=== PATIENT | female | born 1965 | race Caucasian/White ===

== ENCOUNTER → 2018-03-17 14:00 | Outpatient (CLI) | payer OTHER, SELFPAY ==
[2018-03-17 14:54] LABS: Thyroid Stim Hormone (TSH) 1.25 uIU/mL (0.358-3.74)
[2018-03-22 13:16] LABS: HPV APTIMA, High Risk Negative (Negative)
== END ==
PROVIDERS: Family Provider Family Medicine; PCP Family Medicine; Referring Provider Nurse Practitioner Women's Health; Visit Provider Nurse Practitioner Women's Health
DX: R23.2 Flushing (principal); Z12.4 Encounter for screening for malignant neoplasm of cervix
CPT/HCPCS: 36415; 83001; 84443; 88175; G0145

== ENCOUNTER → 2018-04-17 10:14 | Outpatient (CLI) | payer OTHER, SELFPAY ==
--- NOTE | 2018-04-17 10:16 | BI_ITS ---
MAMMOGRAPHY - BILATERAL SCREENING REASON FOR EXAM: Female, 52 years old. Routine annual screening examination. PERTINENT HISTORY: Non-contributory. TECHNIQUE: Digital bilateral breast edwar (3D mammographic acquisition) in the CC and MLO projections. 2-D mediolateral oblique (MLO) and craniocaudad (CC) views of both breasts were obtained. CAD: Full Field Digital Mammography with Computer Added Detection was performed. COMPARISON: None. Baseline examination. FINDINGS: Breast Composition: The breasts are heterogeneously dense, which may obscure small masses. There are no dominant masses or suspicious calcifications. No other significant abnormalities are identified. There has been no significant change since the prior study. BI/SCREENING MAMM (CAD), BILAT IMPRESSION: Stable bilateral screening mammogram. Yearly follow-up mammogram recommended. (A) ASSESSMENT CATEGORY: BIRADS Category 1: Negative. A letter regarding these results will be sent to the patient by the facility within 30 days. Approximately 10% of breast cancers are not detected by mammography. A normal mammogram should not delay biopsy of a clinically suspicious abnormality. [id number] Electronically Signed: Ganesh Grigsby MD at 15:28 EST Tel [phone], Service support ,
== END ==
PROVIDERS: Family Provider Family Medicine; PCP Family Medicine; Referring Provider Nurse Practitioner Women's Health; Visit Provider Nurse Practitioner Women's Health
DX: Z12.31 Encounter for screening mammogram for malignant neoplasm of breast (principal)
CPT/HCPCS: 77063; 77067

== ENCOUNTER → 2019-02-12 | Outpatient (CLI) | payer OTHER, SELFPAY ==
[2018-05-24 14:47] VITALS: BMI 33.0
[2019-02-12 12:00] LABS: Follicle Stimulating Hormone 56.9 mIU/mL
== END | disposition home or self-care (01) ==
LOC: LAB 10:31
PROVIDERS: Family Provider Family Medicine; PCP Family Medicine; Referring Provider Nurse Practitioner Women's Health; Visit Provider Nurse Practitioner Women's Health
DX: N92.6 Irregular menstruation, unspecified (principal)
CPT/HCPCS: 36415; 83001

== ENCOUNTER → 2019-05-13 09:45 | Outpatient (CLI) | payer OTHER, SELFPAY ==
[2018-05-24 14:47] VITALS: BMI 33.0
[2019-03-22 09:53] VITALS: BMI 33.0
--- NOTE | 2019-05-13 09:55 | BI_ITS ---
MAMMOGRAPHY - BILATERAL SCREENING 3-D TOMOSYNTHESIS REASON FOR EXAM: Female, 53 years old. PERTINENT HISTORY: No significant family history. TECHNIQUE: 2-D mammograms and 3-D Tomosynthesis of the breast (s) were performed. CAD was performed. COMPARISON: April 17, 2018 FINDINGS: The breast composition is heterogeneous density of both breasts There is an added density involving the upper outer quadrant of the right the breast this measures 1.5 cm not seen in the previous study for ultrasound assessment. Otherwise stellate lesion, microcalcifications, skin thickening or nipple retraction seen. There are partially seen benign looking lymph nodes in the left axilla. IMPRESSION: Newly seen 1.5 cm density upper outer quadrant right breast for ultrasound assessment. BIRADS -0 Electronically Signed: Jena Gomez, at 14:13 EST Tel , Service support , BI/SCREEN MAMM (CAD) W/MALISSA BILAT
== END ==
PROVIDERS: Family Provider Family Medicine; PCP Family Medicine; Referring Provider Nurse Practitioner Women's Health; Visit Provider Nurse Practitioner Women's Health
DX: Z12.31 Encounter for screening mammogram for malignant neoplasm of breast (principal)
CPT/HCPCS: 77063; 77067

== ENCOUNTER → 2019-05-20 14:12 | Outpatient (CLI) | payer OTHER, SELFPAY ==
[2019-03-22 09:53] VITALS: BMI 33.0
--- NOTE | 2019-05-20 14:19 | US_ITS ---
STUDY: ULTRASOUND BREAST - RIGHT REASON FOR EXAM: Female, 53 years old. Abnormal screening mammogram. TECHNIQUE: Axial and longitudinal images of the RIGHT breast were performed with a high resolution ultrasound transducer. # OF IMAGES: 8 COMPARISON: Comparison is made with prior mammogram dated May 13, 2019. FINDINGS: RIGHT Breast: The mammographic abnormality corresponds to a 12 mm x 9 mm x 8 mm cyst at the 10:00 position of the breast at 10 cm from nipple. US/Breast Limited Unilateral IMPRESSION: The mammographic abnormality corresponds to a 9 mm x 12 mm x 8 mm cyst at the 10:00 position of the breast at 10 cm from the nipple. ASSESSMENT CATEGORY: BIRADS Category 2: Benign. A letter regarding these results will be sent to the patient by the facility within 30 days. Electronically Signed: Ganesh Grigsby, at 9:54 EST , Service support ,
== END ==
PROVIDERS: Family Provider Family Medicine; PCP Family Medicine; Referring Provider Nurse Practitioner Women's Health; Visit Provider Nurse Practitioner Women's Health
DX: R92.8 Other abnormal and inconclusive findings on diagnostic imaging of breast (principal)
CPT/HCPCS: 76642

== ENCOUNTER → 2020-04-02 08:47 | Outpatient (CLI) | payer OTHER, SELFPAY ==
[2020-04-02 08:20] VITALS: BMI 33.2
[2020-04-02 09:12] LABS: Absolute Lymphocyte Count 1.11 X10^3/uL (0.83-4.51); Absolute Neutrophil Count 2.4 X10^3/uL (2.0-7.7); Basophil# 0.03 X10^3/uL; Basophil% 0.8 % (0-1); Eosinophil# 0.06 X10^3/uL; Eosinophils% 1.5 % (0-5); Hematocrit 45.9 % (37-47); Hemoglobin 14.2 g/dL (12.0-15.0); Lymphocyte # 1.11 X10^3/ul (4.0); Lymphocyte % 28.5 % (19-41); Mean Corp Hgb Conc 30.9 g/dL (32-36); Mean Corpuscular Hgb 30.4 pg (27.0-32.0); Mean Corpuscular Volume 98.3 fL (81-99); Mean Platelet Vol. 10.7 fl (6.2-12.0); Monocyte# 0.33 X10^3/uL; Monocyte% 8.5 % (0-10); NRBC Flagged by Analyzer 0 % (0-5); Neutrophil # 2.35 X10^3/uL (2.7-7.7); Neutrophil % 60.4 % (47-70); Platelet Count 280 K/mm3 (150-450); RBC Distribution Width CV 12.6 % (11.6-14.6); RBC Distribution Width SD 45.6 fl (35.1-43.9); Red Blood Count 4.67 M/mm3 (4.2-5.4); White Blood Count 3.9 K/mm3 (4.4-11.0)
[2020-04-02 09:34] LABS: Thyroid Stim Hormone (TSH) 1.69 uIU/mL (0.358-3.74)
[2020-04-02 10:59] LABS: Vitamin D,25 Hydroxy 34.6 ng/mL
== END ==
PROVIDERS: PCP Family Medicine; Referring Provider Nurse Practitioner Women's Health; Visit Provider Nurse Practitioner Women's Health
DX: R53.83 Other fatigue (principal); Z13.29 Encounter for screening for other suspected endocrine disorder; Z13.21 Encounter for screening for nutritional disorder
CPT/HCPCS: 36415; 82306; 84443; 85025

== ENCOUNTER → 2020-05-14 10:51 | Outpatient (CLI) | payer OTHER, SELFPAY ==
[2019-03-22 09:53] VITALS: BMI 33.0
[2020-04-02 08:20] VITALS: BMI 33.2
--- NOTE | 2020-05-14 10:52 | BI_ITS ---
MAMMOGRAPHY - BILATERAL SCREENING REASON FOR EXAM: Female, 54 years old. Routine annual screening examination. PERTINENT HISTORY: Non-contributory. TECHNIQUE: Digital bilateral breast malissa (3D mammographic acquisition) in the CC and MLO projections. 2-D mediolateral oblique (MLO) and craniocaudad (CC) views of both breasts were obtained. CAD: Full Field Digital Mammography with Computer Added Detection was performed. COMPARISON: Comparison is made with prior examination dated 05/13/2019 and 04/17/2018. FINDINGS: Breast Composition: The breasts are heterogeneously dense, which may obscure small masses. The previously seen nodule in the upper outer quadrant of the right breast is increased in size. It presently measures 1.9 cm x 1.9 cm. This was demonstrated to be a cyst on prior ultrasound. No other significant abnormalities are identified. BI/SCREEN MAMM (CAD) W/MALISSA BILAT IMPRESSION: Mild increase in size of the previously seen nodule in the deep upper lateral aspect of the right breast as described. This was demonstrated to be a cyst on prior sonogram. Yearly follow-up mammogram recommended. (A) ASSESSMENT CATEGORY: BIRADS Category 2: Benign. A letter regarding these results will be sent to the patient by the facility within 30 days. Approximately 10% of breast cancers are not detected by mammography. A normal mammogram should not delay biopsy of a clinically suspicious abnormality. [id number] Electronically Signed: Ganesh Grigsby, at 12:03 EST , Service support ,
== END ==
PROVIDERS: PCP Family Medicine; Referring Provider Nurse Practitioner Women's Health; Visit Provider Nurse Practitioner Women's Health
DX: Z12.31 Encounter for screening mammogram for malignant neoplasm of breast (principal)
CPT/HCPCS: 77063; 77067

== ENCOUNTER → 2021-05-17 14:58 | Outpatient (CLI) | payer OTHER, SELFPAY ==
--- NOTE | 2021-05-17 15:32 | BI_ITS ---
MAMMOGRAPHY - BILATERAL SCREENING REASON FOR EXAM: Female, 55 years old. Routine annual screening examination. PERTINENT HISTORY: Non-contributory. TECHNIQUE: Digital bilateral breast malissa (3D mammographic acquisition) in the CC and MLO projections. 2-D mediolateral oblique (MLO) and craniocaudad (CC) views of both breasts were obtained. CAD: Full Field Digital Mammography with Computer Added Detection was performed. COMPARISON: Comparison is made with prior study dated 05/14/2020 and 05/13/2019. FINDINGS: Breast Composition: The breasts are heterogeneously dense, which may obscure small masses. Once again, a well-defined nodule is seen in the deep upper lateral aspect of the right breast. It presently measures 2.4 cm x 2.8 cm. This has increased in size as compared to prior study. This was demonstrated to be a cyst on prior sonogram. No other significant abnormalities are identified. BI/SCRN MAMM (CAD)W/MALISSA BILAT IMPRESSION: Since prior study, there has been an increase in size of the nodular density in the deep upper lateral aspect of the right breast. This was demonstrated to be a cyst on prior sonogram. Yearly follow-up mammogram recommended. (A) ASSESSMENT CATEGORY: BIRADS Category 2: Benign. A letter regarding these results will be sent to the patient by the facility within 30 days. Approximately 10% of breast cancers are not detected by mammography. A normal mammogram should not delay biopsy of a clinically suspicious abnormality. [id number] Electronically Signed: Ganesh Grigsby MD at 8:47 EST , Service support ,
== END ==
PROVIDERS: PCP Family Medicine; Referring Provider Nurse Practitioner Women's Health; Visit Provider Nurse Practitioner Women's Health
DX: Z12.31 Encounter for screening mammogram for malignant neoplasm of breast (principal)
CPT/HCPCS: 77063; 77067

== ENCOUNTER → 2021-05-23 07:45 | Outpatient (CLI) | payer OTHER, SELFPAY ==
--- NOTE | 2021-05-23 07:48 | US_ITS ---
STUDY: ULTRASOUND BREAST - RIGHT REASON FOR EXAM: Female, 55 years old. History of right breast cyst. TECHNIQUE: Axial and longitudinal images of the RIGHT breast were performed with a high resolution ultrasound transducer. # OF IMAGES: 22 COMPARISON: Comparison is made with prior mammogram dated 05/17/2021 and prior ultrasound of the right breast dated 05/20/2019 FINDINGS: RIGHT Breast: There is a 2.1 cm x 2.5 cm x 1.5 cm cyst at the 10 o''clock position of the breast at 1 cm from the nipple. US/Breast Limited Unilateral IMPRESSION: 2.1 cm x 2.5 cm x 1.5 cm cyst at the 10 o''clock position of the breast of 1 cm from the nipple. ASSESSMENT CATEGORY: BIRADS Category 2: Benign. A letter regarding these results will be sent to the patient by the facility within 30 days. Electronically Signed: Ganesh Grigsby MD at 8:47 EST , Service support ,
== END ==
PROVIDERS: PCP Family Medicine; Referring Provider Nurse Practitioner Women's Health; Visit Provider Nurse Practitioner Women's Health
DX: N60.01 Solitary cyst of right breast (principal)
CPT/HCPCS: 76642

== ENCOUNTER 2022-05-06 08:52 | Outpatient (CLI) | payer OTHER, SELFPAY ==
--- NOTE | 2022-05-06 08:55 | US_ITS ---
STUDY: ULTRASOUND BREAST - RIGHT REASON FOR EXAM: Female, 56 years old. Right breast mass. History of right breast cyst. TECHNIQUE: Axial and longitudinal images of the RIGHT breast were performed with a high resolution ultrasound transducer. # OF IMAGES: 6 COMPARISON: May 23, 2021. FINDINGS: RIGHT Breast: Simple cyst at the 10:00 position of the right breast 10 cm from the nipple measuring 2.2 cm x 2.6 cm. Cyst has slightly increased in size since the comparison ultrasound. No suspicious lesions. Since the cyst has increased in size slightly, if the patient develops increasing pain, ultrasound-guided cyst aspiration could be performed in an attempt to relieve the pain. US/Breast Limited Unilateral IMPRESSION: Slight increase in right breast cyst. See discussion above regarding ultrasound-guided cyst aspiration. Follow-up yearly screening mammogram recommended. ASSESSMENT CATEGORY: BIRADS Category 2: Benign. A letter regarding these results will be sent to the patient by the facility within 30 days. Electronically Signed: Danny Hogue, at 10:46 EST ,
--- NOTE | 2022-05-06 09:23 | BI_ITS ---
DIGITAL MAMMOGRAPHY - BILATERAL SCREENING TOMOSYNTHESIS REASON FOR EXAM: Female, 56 years old. Palpable right breast mass. PERTINENT HISTORY: History of right breast cyst TECHNIQUE: Digital bilateral breast tomosynthesis (3-D mammographic acquisition) in the CC and MLO projections. Synthesized 2-D images (C-View reconstruction from tomosynthesis acquisition) providing bilateral breast CC and MLO views. CAD: Computer Aided Detection was performed on this study. COMPARISON: May 17, 2021, May 14, 2020. FINDINGS: Breast Composition: There are scattered areas of fibroglandular density. Circumscribed lobulated mass at the 10:00 position of the right breast which is slightly larger. Ultrasound of the right breast showed slight increase in size of the simple cyst. The patient was informed that if the cyst became more painful, ultrasound-guided cyst aspiration could be performed for potential pain relief. No other abnormality in either breast. BI/DIAG MAMM W/CAD, BILAT IMPRESSION: Slight increase in size of right breast cyst as described See discussion above regarding ultrasound-guided cyst aspiration. ASSESSMENT CATEGORY: BIRADS Category 2: Benign. FOLLOW UP RECOMMENDATION: Follow up recommended within 12 months. STATISTICAL INFORMATION FOR PATIENTS AND PHYSICIANS: A. A negative report should not delay biopsy if a dominant mass or clinically suspicious mass is present. 5-8% of breast cancers are not identified by mammography. B. Comparison with prior films increases the sensitivity of mammography for detection of early malignancy. Screening mammography is done annually to evaluate subtle changes of the breasts that otherwise may not be apparent without comparison to previous examinations. While attempts to retrieve prior examinations will be made on your behalf when thought to be necessary in the workup of a suspicious finding, it is the patient''s responsibility to provide the examining facility with any prior examinations. All patients aged 40 years and older undergoing screening mammography are entered into a reminder system with a target date for the next mammogram. Electronically Signed: Danny Hogue, at 10:48 EST ,
== END 2022-05-06 23:59 | disposition home or self-care (01) ==
LOC: OPBI 08:53
PROVIDERS: PCP Family Medicine; Visit Provider Surgery
DX: N60.01 Solitary cyst of right breast (principal); R92.2 Inconclusive mammogram
CPT/HCPCS: 76642; 77062; 77066; G0279

== ENCOUNTER → 2022-07-07 | Outpatient (CLI) | payer OTHER, SELFPAY ==
[2022-07-11 16:14] LABS: HPV APTIMA, High Risk Negative (Negative)
== END | disposition home or self-care (01) ==
LOC: LABSPEC 16:09
PROVIDERS: PCP Family Medicine; Referring Provider Nurse Practitioner Women's Health; Visit Provider Nurse Practitioner Women's Health
DX: Z12.4 Encounter for screening for malignant neoplasm of cervix (principal)
CPT/HCPCS: 87624; 88175; G0145

== ENCOUNTER → 2023-07-09 | Outpatient (CLI) | payer OTHER, SELFPAY ==
--- NOTE | 2023-07-09 10:43 | BI_ITS ---
MAMMOGRAPHY - BILATERAL SCREENING REASON FOR EXAM: Female, 57 years old. Routine annual screening examination. PERTINENT HISTORY: Non-contributory. TECHNIQUE: Digital bilateral breast malissa (3D mammographic acquisition) in the CC and MLO projections. 2-D mediolateral oblique (MLO) and craniocaudad (CC) views of both breasts were obtained. CAD: Full Field Digital Mammography with Computer Added Detection was performed. COMPARISON: Comparison is made with prior study dated May 17, 2021 and May 06, 2022. FINDINGS: Breast Composition: There are scattered areas of fibroglandular density. The previously seen 2.4 cm well-defined nodule in the upper lateral aspect of the right breast is not present at this time and most likely represents prior drainage of a cyst. No other significant abnormalities are identified. BI/SCRN MAMM (CAD)W/MALISSA BILAT IMPRESSION: The previously seen nodular density in the upper-outer quadrant of the right breast is not seen at this time in keeping with history of prior cystic drainage. Yearly follow-up mammogram recommended. (A) ASSESSMENT CATEGORY: BIRADS Category 2: Benign. A letter regarding these results will be sent to the patient by the facility within 30 days. Approximately 10% of breast cancers are not detected by mammography. A normal mammogram should not delay biopsy of a clinically suspicious abnormality. [id number] Electronically Signed: Ganesh Grigsby MD at 13:21 EST ,
--- OUTSIDE RECORDS SUMMARY | 2023-07-09 11:18 | XMS RPT_ITS | CCD ---
Author Name Unknown Address [address] [place] [address] Organization [facility] Care Team Providers Care Pcat Instructor Name Role Phone PCP, NONE Unavailable Unavailable REGINE BORGES Unavailable Unavailable Rigoberto Hernandez Unavailable Unavailabl e Furntricia, Luc Unavailable Unavailable Pending Provider Unavailable Unavailable Update Needed Unavailable Unavailable Pending Provider Unavailable Unavailable Unavailable Unavailable Furntricia, Luc T Unavailable Cl MAGALLON, Pepe Javier Primary Care Provider Luc Oliva MD Primary Care Provider [phone] Luc Oliva MD Unavailable [phone] LUC OLIVA Primary Care Unavailable Cl MAGALLON, Pepe Javier Primary Care Provider LUC OLIVA Attending Unavailable LUC OLIVA Primary Care Unavailable LUC OLIVA Attending Unavailable LUC OLIVA Primary Care Unavailable Luc Oliva MD Primary Care Provid er Dr. Luc Oliva Primary Care Un available Tessa, Ms. Nancy Ross Attending Unavail able NANCY ZARATE Referring Unavailable NANCY ZARATE Attending Unavailable LUC OLIVA Primary Care Elvin labLUC Robertson Primary Care UnavaLOLIS Gifford Attending Unavailable NANCY ZARATE Admitting Unavailable NANCY ZARATE Referring Unavailable LUC OLIVA Primary Care Unavai labNANCY Herbert Referring Unavailable GEORGE LAGUERRE Attending Unavailable NANCY ZARATE Admitting Unavailable LUC OLIVA Primary Care Unavai labtheo GALINDO, LOLIS Attending Unavailable ZARATENANCY Referring Unavailable ZARATE, NANCY ROSS Admitting Unavailable [facility], [facility] Primary Care Unavai lable HERNÁNDEZ, VIKTOR Attending Unavailable ZARATE, NANCY ROSS Referring Unavailable ZARATE, NANCY ROSS Admitting Unavailable F[facility], [facility] Care Unacelena lable HERNÁNDEZ, VIKTOR Attending Unavailable ZARATE, NANCY ROSS Admitting Unavailable ZARATE, NANCY ROSS Referring Unavailable SOWMYA, ARNOLD TERNA Admitting Unavailab le FURNESS, [facility] Care Unacelena labtheo OLSEN, ARNOLD TERAN Attending Unavailab le FURNESS, [facility] Care Unavai lable HERNÁNDEZ, VIKTOR Attending Unavailable ZARATE, NANCY ROSS Admitting Unavailable ZARATE, NANCY ROSS Referring Unavailable FURNESS, [facility] Care Unaastridi lable ZARATE, NANCY ROSS Admitting Unavailable ZARATE, NANCY ROSS Referring Unavailable WARNES, MARYSE Attending Unavailable CONY LOFTON Attending Unavailable FURNESS, [facility] Primary Care UnaCONY Yepez Attending Unavailable FURNESS, [facility] Primary Care CONY Lawrence Attending Unavailable FURNESS, [facility] Primary Care Unaastridi labtheo OLSEN, ARNOLD TERAN Attending Unavailab le FURNESS, [facility] Primary Care Unavai lable ZARATENANCY Attending Unavailable FURNESS, [facility] Primary Care Unavai lable FURNESS, [facility] Referring Unavai lable FURNESS, LUC SUE Admitting Unavai lable ZARATENANCY Admitting Unavailable ZARATE, NANCY ROSS Referring Unavailable FURNESS, [facility] Primary Care Unavai lable NANCY ZARATE Attending Unavailable [facility], [facility] Primary Care Unavai lable FURNESS, [facility] Primary Care Unaastridi labARNOLD Hannah Attending Unavailab le MARY PIKE Attending Unavailabl e PEPE DESAI [facility] Unavaila ble MARY PIKE Referring PEPE Mendez Primary Care MARY Zimmer Referring MARY Reyes Attending Felecia schwarz Allergies Allergy Classification Reported Allergen(s) Allergy Type Date of Onset Reaction(s) Facility (3 sources) Seasonal allergy; Translations: [SEASONAL ALLERGIES] Allergy to substance 2 Other: See Comments [facility] Work Phone: Medications Current Medications Medication Drug Class(es) Dates Sig (Normalized) Sig (Original) aspirin 81 mg delayed release oral tablet (7 sources) Platelet Aggregation Inhibitor, Nonsteroidal Anti-inflammatory Drug Start: 03-06-2023 End: 04-05-2023 take 1 tablet by mouth twice daily aspirin 81 MG EC tablet Take 1 (one) tablet (81 mg total) by mouth 2 (two) times a day . 60 tablet 0 03/06/2023 04/05/2023 Active Completed/Discontinued Medications Medication Drug Class(es) Dates Sig (Normalized) Sig (Original) amoxicillin 875 mg / clavulanate 125 mg oral tablet (6 sources) Penicillin-class Antibacterial Start: 05-20-2021 take 1 tablet by mouth once daily Amoxicillin-Pot Clavulanate 875-125 MG Oral Tablet TAKE 1 TABLET EVERY 12 HOURS DAILY. Quantity: 20 Refills: 1 Ordered: 20-May-2021 Luc Oliva MD Start : 20-May-2021 Active Problems Active Problems Problem Classification Problem Date Documented Date Episodic/Chronic Disorders of teeth and jaw (9 sources) Temporomandibular joint disorder; Translations: [Temporomandibular joint disorders, unspecified] Onset: 09-17-2022 09-17-2022 Episodic Headache; including migraine (20 sources) Migraine without aura, not refractory ; Translations: [Migraine] Onset: 09-17-2022 09-17-2022 Chronic Immunizations and screening for infectious disease (15 sources) Patient encounter status; Translations: [Other specified vaccination] 09-18-2022 Episodic Inflammation; infection of eye (except that caused by tuberculosis or sexually transmitteddisease) (4 sources) Bilateral punctate keratitis of eyes; Translations: [Punctate keratitis, bilateral] Onset: 07-23-2020 Chronic Joint disorders and dislocations; trauma-related (8 sources) Other meniscus derangements, posterior horn of medial meniscus, left knee; Translations: [Old bucket handle tear of medial meniscus] Onset: 12-26-2022 01-26-2023 Chronic Joint disorders and dislocations; trauma-related (18 sources) Tear of medial meniscus of knee; Translations: [Other tear of medial meniscus, current injury, left knee, subsequent encounter] Onset: 01-07-2023 01-07-2023 Episodic Malaise and fatigue (5 sources) Fatigue; Translations: [Other fatigue] Onset: 09-18-2022 09-18-2022 Episodic Osteoarthritis (20 sources) Unilateral primary osteoarthritis, left knee; Translations: [Osteoarthritis of left knee joint] Onset: 11-05-2022 Chronic Other connective tissue disease (1 source) Synovial cyst of popliteal space [Luque], left knee; Translations: [Synovial cyst of popliteal space [Luque], left knee] Onset: 12-26-2022 Episodic Other eye disorders (1 source) Bilateral vitreous floaters; Translations: [Other vitreous opacities, bilateral] Chronic Other eye disorders (4 sources) Tear film insufficiency; Translations: [Dry eye syndrome of bilateral lacrimal glands] Onset: 07-23-2020 Episodic Other eye disorders (3 sources) Epithelial basement membrane dystrophy; Translations: [ABMD (anterior basement membrane dystrophy)] Onset: 07-23-2020 07-23-2020 Episodic Other non-traumatic joint disorders (1 source) Effusion, left knee; Translations: [Effusion, left knee] Onset: 12-26-2022 Episodic Other screening for suspected conditions (not mental disorders or infectious disease) (4 sources) Encounter for screening for lipoid disorders; Translations: [Encounter for screening for lipoid disorders] Onset: 09-18-2022 Episodic Other upper respiratory disease (9 sources) Allergic rhinitis; Translations: [Allergic rhinitis, cause unspecified] Onset: 09-17-2022 09-17-2022 Chronic Residual codes; unclassified (1 source) Past history of procedure; Translations: [Other specified personal history presenting hazards to health] Onset: 05-06-2022 Episodic Residual codes; unclassified (1 source) History of arthroscopy of knee joint; Translations: [Other specified postprocedural states] 03-20-2023 Episodic Residual codes; unclassified (4 sources) Other specified postprocedural states; Translations: [Other specified postprocedural states] Onset: 03-06-2023 Episodic Spondylosis; intervertebral disc disorders; other back problems (4 sources) Thoracic back pain; Translations: [Dorsalgia, unspecified] Onset: 09-18-2022 09-18-2022 Episodic Unclassified (2 sources) Results Onset: 01-01-2023 Past or Other Problems Problem Classification Problem Date Documented Date Episodic/Chronic Conditions associated with dizziness or vertigo (18 sources) Vertigo; Translations: [Dizziness and giddiness] Onset: 09-17-2022 09-17-2022 Episodic Inflammation; infection of eye (except that caused by tuberculosis or sexually transmitteddisease) (2 sources) Allergic conjunctivitis of bilateral eyes; Translations: [Acute atopic conjunctivitis, bilateral] Onset: 11-05-2020 11-05-2020 Episodic Open wounds of extremities (9 sources) Puncture wound without foreign body of right thumb without damage to nail, initial encounter; Translations: [Puncture wound of thumb of right hand] Onset: 09-17-2022 Resolved: 09-17-2022 09-17-2022 Episodic Other eye disorders (3 sources) 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; Translations: [Recurrent erosion of cornea, left eye] Onset: 07-23-2020 Episodic Other non-traumatic joint disorders (8 sources) Pain in left knee; Translations: [Pain in joint, lower leg] Onset: 11-05-2022 Episodic Other upper respiratory infections (5 sources) Acute maxillary sinusitis; Translations: [Acute maxillary sinusitis] Onset: 09-17-2022 Resolved: 09-17-2022 09-17-2022 Episodic Residual codes; unclassified (2 sources) Pain, unspecified; Translations: [Pain, unspecified] Onset: 11-27-2022 Episodic Sprains and strains (3 sources) Strain of thoracic region; Translations: [Sprain of thoracic] Onset: 09-17-2022 Resolved: 09-17-2022 09-17-2022 Episodic Unclassified (1 source) Frequency of micturition / R35.0(ICD-10) Onset: 03-31-2017 Unclassified (1 source) Frequency of micturition; Translations: [Frequency of micturition] Onset: 03-31-2017 Unclassified (1 source) Patient encounter status; Translations: [Encounter for immunization] Urinary tract infections (1 source) Urinary tract infections Onset: 03-31-2017 NEGATED: Highlighted row has not occurred!Residual codes; unclassified (3 sources) Disease Episodic Results Test Name Value Interpretation Reference Range Facil ity Vital Signs Date Time Vital Sign Value Performing Clinician Facility 09-18-2022 14:27-0400 Body height 170.2 cm Luc Oliva MD Work Phone: [facility] 09-18-2022 14:27-0400 Body mass index (BMI) [Ratio] 32.91 kg/m2 Luc Oliva MD Work Phone: [facility] 09-18-2022 14:27-0400 Body weight 95.3 kg Luc Oliva MD Work Phone: [facility] 09-18-2022 14:27-0400 Diastolic blood pressure 88 mm[Hg] uLc Oliva MD Work Phone: [facility] 09-18-2022 14:27-0400 Heart rate 77 /min Luc Oliva MD Work Phone: [facility] 09-18-2022 14:27-0400 SaO2% (BldA) [Mass fraction] 95 % Luc Oliva MD Work Phone: [facility] 09-18-2022 14:27-0400 Systolic blood pressure 126 mm[Hg] Luc Oliva MD Work Phone: [facility] 09-09-2021 11:05-0400 Body height 170.18 cm Luc Oliva [facility] Work Phone: 09-09-2021 11:05-0400 Body mass index (BMI) [Ratio] 32.13 kg/m2 Luc Oliva Work Phone: [facility] Work Phone: 09-09-2021 11:05-0400 Body surface area Derived from formula 2.04 m2 Luc Oliva Work Phone: [facility] Work Phone: 09-09-2021 11:05-0400 Body weight 93.05 kg Luc Oliva Work Phone: [facility] Work Phone: 09-09-2021 11:05-0400 Diastolic blood pressure 84 mm[Hg] Luc Oliva Work Phone: [facility] Work Phone: 09-09-2021 11:05-0400 Heart rate 69 /min Luc Oliva Work Phone: [facility] Work Phone: 09-09-2021 11:05-0400 SaO2% (BldA) [Mass fraction] 97 % Luc Oliva Work Phone: [facility] Work Phone: 09-09-2021 11:05-0400 Systolic blood pressure 148 mm[Hg] Luc Oliva Work Phone: [email or web address] [facility] Work Phone: 05-20-2021 13:10-0500 Body height 170.18 cm Luc Oliva MD Work Phone: [facility] Work Phone: 05-20-2021 13:10-0500 Body mass index (BMI) [Ratio] 31.49 kg/m2 Luc Oliva MD Work Phone: [facility] Work Phone: 05-20-2021 13:10-0500 Body surface area Derived from formula 2.03 m2 Luc Oliva MD Work Phone: [facility] Work Phone: 05-20-2021 13:10-0500 Body temperature 97.3 [degF] Luc Oliva MD Work Phone: [facility] Work Phone: 05-20-2021 13:10-0500 Body weight 91.2 kg Luc Oliva MD Work Phone: [facility] Work Phone: 05-20-2021 13:10-0500 Diastolic blood pressure 68 mm[Hg] Luc Oliva MD Work Phone: [facility] Work Phone: 05-20-2021 13:10-0500 Heart rate 79 /min Luc Oliva MD Work Phone: [facility] Work Phone: 05-20-2021 13:10-0500 SaO2% (BldA) [Mass fraction] 98 % Luc Oliva MD Work Phone: [facility] Work Phone: 05-20-2021 13:10-0500 Systolic blood pressure 126 mm[Hg] Luc Oliva MD Work Phone: [facility] Work Phone: 03-29-2020 17:07-0400 BMI (Body Mass Index) 33.37 kg/m2 Rigoberto Hernandez [facility] Work Phone: 03-29-2020 17:07-0400 Body Temperature 97.3 [degF] Rigoberto Hernandez [facility] Work Phone: 03-29-2020 17:07-0400 Body weight 96.64 kg Rigoberto Hernandez [facility] Work Phone: 03-29-2020 17:07-0400 BP Diastolic 80 mm[Hg] Rigoberto Hernandez [facility] Work Phone: 03-29-2020 17:07-0400 BP Systolic 120 mm[Hg] Rigoberto Hernandez -[facility] Work Phone: 03-29-2020 17:07-0400 BSA (Body Surface Area) 2.08 m2 Rigoberto rojool-PHZIEX-Uoyj [facility] Work Phone: 03-29-2020 17:07-0400 Height 170.18 cm Rigoberto mv-LOIKWH-Bvlo [facility] Work Phone: 03-29-2020 17:07-0400 Pulse (Heart Rate) 68 /min Rigoberto rojoch-EVBDQY[facility] Work Phone: 03-29-2020 17:07-0400 Pulse Oximetry 98 % Rigoberto se-ZIPIBW-Vjre [facility] Work Phone: Encounters Encounter Date Encounter Type Care Provider Facility Start: 04-21-2023 End: 04-21-2023 ambulatory MARY PIKE Facility:[facility] Start: 03-20-2023 End: 03-20-2023 ambulatory ARNOLD OLSEN [facility] Start: 03-20-2023 End: 03-20-2023 Postop follow up visit related to original px Arnold Olsen MD Work Phone: [facility] Procedures Date Procedure Procedure Detail Performing Clinician Start: 09-30-2022 CBC panel - Blood by Automated count LUC OLIVA Start: 09-30-2022 Comprehensive metabo lic 2000 panel - Serum or Plasma LUC OLIVA Start: 09-30-2022 Lipid panel LUC CASIANO Start: 09-30-2022 Thyrotropin [Units/v olume] in Serum or Plasma LUC OLIVA Start: 05-06-2022 Mammography Cony Lofton LPN Start: 04-19-2021 Colonoscopy Luc casiano MD Work Phone: Start: 07-23-2020 History of laser ass isted in situ keratomileusis Hx of LASIK Mary Pike OD Work Phone: Start: 02-12-2018 End: 02-12-2018 Colonoscopy Rigoberto Hernandez Start: 02-12-2018 Colonoscopy Kyle schwarz DO Work Phone: Cholecystectomy Rigoberto Biswas History of laser ass isted in situ keratomileusis Hx of LASIK Breezy Bal MD Work Phone: Plan of Treatment Date Care Activity Detail Author Start: 04-19-2031 Screening for malignant neoplasm of colon [facility] Start: 08-09-2029 Tetanus vaccination Tetanus: Every 10yrs [facility] Start: 10-01-2027 LIPID SCREEN LIPID SCREEN [facility] Start: 09-30-2025 DIABETES SCREEN DIABETES SCREEN [facility] Start: 05-06-2023 Screening for malignant neoplasm of breast Mammogram [facility] Start: 03-20-2023 End: 03-20-2023 Follow-up encounter 03/20/2023 2:30 PM EDT Follow-Up [facility] [address] [place] [address] Arnold Olsen MD [address] [place] [address] [facility] Start: 03-06-2023 End: 03-06-2023 Admission to same day surgery center 03/06/2023 7:20 AM EDT - 03/06/2023 8:11 AM EDT Surgery [facility] [address] [place] [address] Arnold Olsen MD [address] [place] [address] Left knee arthroscopy partial meniscectomy chondroplasty [facility] Immunizations Immunization Date Immunization Notes Care Provider Fa cili 09-20-2020 Moderna COVID-19 Vaccine 100 MCG/0.5ML Intramuscular Suspension Luc Oliva MD Work Phone: [facility] Work Phone: Payers Date Payer Category Payer Private Health Insurance [id number] 2014 Private Health Insurance [id number] 1966 Unknown [id number] 1966 Unknown [id number] 2.16.84 [id number] 1966 Unknown [id number] 2.16.84 [id number] 1966 Unknown [id number] 2.16.8 [id number] 1966 Unknown [id number] 2.16 [id number] 1966 Unknown [id number] 2.16. 840.1.296094.3.579.2.903 1966 Unknown [id number] 2.16. 840.1.915558.3.579.2.903 1966 Unknown [id number] 2.16. 840.1.585717.3.579.2.903 1966 Unknown [id number] 2.16. 840.1.203060.3.579.2.903 1966 Unknown [id number] 2.16. 840.1.017064.3.579.2.903 1966 Unknown [id number] 2.16. 840.1.418669.3.579.2.903 1966 Unknown [id number] 2.16. 840.1.085866.3.579.2.903 1966 Unknown [id number] 2.16. 840.1.075721.3.579.2.903 1966 Unknown [id number] 2.16. 840.1.794964.3.579.2.903 1966 Unknown [id number] 2.16. 840.1.580913.3.579.2.903 1966 Unknown [id number] 2.16. 840.1.269998.3.579.2.903 1966 Unknown [id number] 2.16. 840.1.750303.3.579.2.903 1966 Unknown [id number] 2.16. 840.1.487808.3.579.2.903 1966 Unknown [id number] 2.16. 840.1.256502.3.579.2.903 1966 Unknown [id number] 2.16. 840.1.395462.3.579.2.903 1966 Unknown [id number] 2.16. [id number] Unknown [employer] Social History Date Type Detail Facility Assertion Tobacco smoking consumption unknown (finding) [facility] Work Phone: Start: 09-18-2022 End: 03-09-2023 Non-smoker Non-smoker [facility] Work Phone: Start: 12-16-2011 End: 11-27-2022 Tobacco smoking status NHIS Never smoked tobacco [facility] Work Phone: Start: 12-16-2011 End: 11-27-2022 Tobacco use and exposure Smokeless tobacco non-user [facility] Work Phone: Start: 04-11-2022 End: 03-21-2023 Alcohol intake Current drinker of alcohol (finding) [facility] Start: 12-16-2011 Alcohol Comment Occasionally [facility] Start: 1965 Sex Assigned At Not on file [facility] Start: 04-01-2022 End: 09-18-2022 Exposure to SARS-CoV-2 (event) Not sure [facility] Start: 09-18-2022 End: 03-09-2023 Tobacco use panel [facility] Work Phone: Start: 11-24-2022 Gender identity Identifies as female gender (finding) [facility] Start: 11-24-2022 Sexual orientation Heterosexual (finding) [facility] Functional Status Date Assessment Result Facility NEGATED: Highlighted row Functional performance Functional status health issues are not documented Disease [facility] Work Phone: Mental Status Date Assessment Result Facility NEGATED: Highlighted row Cognitive function [Interpretation] Cognitive status health issues are not documented Disease [facility] Work Phone: Clinical Notes 08-26-2021 to 04-21-2023 Viktor Hernández, PT - 02/02/2023 1:00 PM Maryse Awan, DIESEL ENGINE I PIPE FITTER - 01/26/2023 2:30 PM Lolis Somers, DIESEL ENGINE I PIPE FITTER - 01/23/2023 1:45 PM Lolis Somers, DIESEL ENGINE I PIPE FITTER - 01/16/2023 4:00 PM EDTPatient Instructions Note Date & Type Note Facility 04-21-2023 Note HNO ID: [id number] Author: Mary Pike OD Service: ? Author Type: KEG INSPECTOR Type: Progress Notes Filed: 04/21/2023 3:07 PM Note Text: ASSESSMENT/PLAN: 1. Dry eye syndrome of both eyes - ICD9: 375.15, ICD10: H04.123 (primary diagnosis) Continue to use her artificial tears as desired. 2. 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 3. Vitreous floaters of both eyes - ICD9: 379.24, ICD10: H43.393 Vitreal floaters stable both eyes. Retinas flat and intact with no apparent retinal tear or traction. Discussed symptoms of retinal tear/detachment and if seen patient will return to clinic without delay. Recommended yearly exam, sooner if she has discomfort or concerns Mary Pike, OD I have confirmed and edited as necessary the relevant ophthalmic history, ROS, and the neuro exam findings as obtained by others. I have seen and examined this patient. [facility] 02-02-2023 History of Present illness Narrative [facility] DAILY TREATMENT NOTE Today's Date 02/02/2023 Patient Name: Berenice Woodruff Date of : 1965 Current Visit #: 7 Authorized Visits: 60 Case Name: Tear of medial meniscus of left knee History: Pre-Treatment Pain Scale: 5 Symptoms: stabilized Functional Diagnosis: 1. Old tear of medial meniscus of left knee, unspecified tear type Clinical Information: Subjective: patient report she has been limited with activities due to pain and knee swells up with WB activities. She has been reduces bike time to 10 mins from 20. She has been careful going down stairs. She is complaint with Hep Objective Gone through goals and concern for discharge patient on Hep as patient's knee reacts with weight bearing exercises and progressed with all non weight bearing exercises to focus on knee and hip mobility and strength. Patient is compliant with Hep and could independently do exercises at home. Treatments: Physical Therapy Exercise Log - 02/02/23 1302 OTHER Notes Visit 7 1:02 1:34 Therapeutic Exercise (80554) Intervention SciFit - x5 min L3 Parameters Calf, HS stretch - 20 sec x3 NT Intervention clamshell side 20 on R side Intervention -- Parameters Quad sets - 5 sec x20 Intervention Active Heel slides - x15 Parameters HS curl RTB- x 20 B Intervention 3-way SLR - x10 B Parameters Hip abd, add - x20 ball BTB 20 Intervention Bridges - x 20 Parameters -- Parameters Access Code: [email or web address] URL: [email or web address] Date: 01/13/2023 Prepared by: Viktor Hernández Exercises - Supine Quad Set - 1 x daily - 10 reps - 5 seconds hold - Supine Straight Leg Raises - 1 x daily - 10 reps - 2 seconds hold - Supine Heel Slide with Strap - 1 x daily - 7 x weekly - 1 sets - 10 reps - 5 hold - Seated Long Arc Quad - 1 x daily - 1-3 sets - 10 reps - 5 hold - Supine Bridge - 1 x daily - 1 sets - 10 reps - 10 hold - Side Leg Lifts - 1 x daily - 1-3 sets - 10 reps - 2 hold - Hooklying Bilateral Isometric Clamshell - 1 x daily - 2 sets - 10 reps - 3 hold PT Treatment Times Therex Total Time 32 Direct Treatment Time 32 Goals: Physical Therapy Ortho Goals: Patient will safely, correctly and independently demonstrate the ability to perform a progressive HEP to achieve maximal rehabilitation potential and prevent this condition from recurring. 2 weeks 02/02/2023 goal met Patient will improve knee pain level 0-3/10 from 5-8/10 with Wb activities. 6 weeks 02/02/2023 4-6/10 constant Patient will demonstrate strength of quadriceps muscle 5/5 with good eccentric control to improve tolerance of functional activities such as stair negotiation. 6 weeks 02/02/2023 4+/5 Extensors and flexors 5/5 Patient will improve tolerance to ambulation 20 mins and 20 stationary bike. 6 weeks 02/02/2023 10 mins on stationary bike, ambulation 2 hrs with resting between. Patient will improve FOTO score to at least 68 (predicted) from 46 to show MDC/MCII and expected functional outcome. 6 weeks 02/02/2023 55 progression Patient Education: Verbal HEP, HEP Adherence, and Diagnosis and recovery specific education with patient verbalized understanding. Post-Treatment Pain Scale: 5 Assessment: Patient had an expected response to treatment. Skilled Intervention demonstrated by modifications of treatment per exercise log including increased mobility and assessment of patient's response and safety interventions per exercise log. Progress towards goals as expected. Plan for Next Visit: Discharge Viktor Hernández PT STATE LICENSE, [id number] documented in this encounter [facility] 01-26-2023 History of Present illness Narrative [facility] DAILY TREATMENT NOTE Today's Date 01/26/2023 Patient Name: Berenice Woodruff Date of : 1965 Current Visit #: 5 Authorized Visits: 60 Case Name: Tear of medial meniscus of left knee History: Pre-Treatment Pain Scale: 4 Symptoms: stabilized Functional Diagnosis: 1. Old bucket handle tear of medial meniscus of left knee Clinical Information: Subjective: Her knee has been somewhat less painful since holding on some of the weight bearing exercises. Objective mild pain increase with quad sets into towel Treatments: Physical Therapy Exercise Log - 01/26/23 1458 OTHER Notes Visit 4: 2:30-2:58 Therapeutic Exercise (23294) Intervention SciFit - x5 min L4 Parameters Calf, HS stretch - 20 sec x3 Intervention BOSU Lunges - x15 alt - NT Parameters Step ups - x10 fwd, lat - NT Intervention Steamboats - x10 L3 - NT Parameters Lat, retro ambulation - 15' x1 lap NT Intervention Shuttle squats - 2 x10 62# NT Parameters Quad sets - 5 sec x10 Intervention Active Heel slides - x10 Parameters LAQ, HS curl RTB- x 20 B Intervention 3-way SLR - x10 B Parameters Hip abd, add - x20 ball GTB Intervention Bridges - x 20 Parameters Access Code: [email or web address] URL: [email or web address] Date: 01/13/2023 Prepared by: Viktor Hernández Exercises - Supine Quad Set - 1 x daily - 10 reps - 5 seconds hold - Supine Straight Leg Raises - 1 x daily - 10 reps - 2 seconds hold - Supine Heel Slide with Strap - 1 x daily - 7 x weekly - 1 sets - 10 reps - 5 hold - Seated Long Arc Quad - 1 x daily - 1-3 sets - 10 reps - 5 hold - Supine Bridge - 1 x daily - 1 sets - 10 reps - 10 hold - Side Leg Lifts - 1 x daily - 1-3 sets - 10 reps - 2 hold - Hooklying Bilateral Isometric Clamshell - 1 x daily - 2 sets - 10 reps - 3 hold PT Treatment Times Therex Total Time 28 Direct Treatment Time 28 Total Treatment Time 28 Goals: Physical Therapy Ortho Goals: Patient will safely, correctly and independently demonstrate the ability to perform a progressive HEP to achieve maximal rehabilitation potential and prevent this condition from recurring. 2 weeks Patient will improve knee pain level 0-3/10 from 5-8/10 with Wb activities. 6 weeks Patient will demonstrate strength of quadriceps muscle 5/5 with good eccentric control to improve tolerance of functional activities such as stair negotiation. 6 weeks Patient will improve tolerance to ambulation 20 mins and 20 stationary bike. 6 weeks Patient will improve FOTO score to at least 68 (predicted) from 46 to show MDC/MCII and expected functional outcome. 6 weeks Patient Education: Quality of movement with patient demonstrated understanding. Post-Treatment Pain Scale: 3 Assessment: Patient had an expected response to treatment. Skilled Intervention demonstrated by modifications of treatment per exercise log including increased load and safety interventions per exercise log. Progress towards goals as expected. Plan for Next Visit: Treatment Visit with focus on mild antalgic gait on L during stance phase Maryse Manley PTA STATE LICENSE, [id number] documented in this encounter [facility] 01-23-2023 History of Present illness Narrative [facility] DAILY TREATMENT NOTE Today's Date 01/23/2023 Patient Name: Berenice Woodruff Date of : 1965 Current Visit #: 4 Authorized Visits: 60 Case Name: Tear of medial meniscus of left knee History: Pre-Treatment Pain Scale: 6 Symptoms: stabilized Functional Diagnosis: No diagnosis found. Clinical Information: Subjective: Pt reports knee is more swollen and painful especially with weight bearing and sit to stand, steps really get it more aggravated. Compliant with HEP Objective Treatments: Physical Therapy Exercise Log - 01/23/23 1342 OTHER Notes Visit 3: 1:42 - 2:15 Therapeutic Exercise (33716) Intervention SciFit - x5 min L4 Parameters Calf, HS stretch - 20 sec x3 Intervention BOSU Lunges - x15 alt - NT Parameters Step ups - x10 fwd, lat - NT Intervention Steamboats - x10 L3 - NT Parameters Lat, retro ambulation - 15' x1 lap NT Intervention Shuttle squats - 2 x10 62# Parameters Quad sets - 5 sec x10 Intervention Active Heel slides - x10 Parameters LAQ, HS curl RTB- x 20 B Intervention 3-way SLR - x10 B Parameters Hip abd, add - x15 ball GTB Intervention Bridges - x15 Parameters Access Code: [email or web address] URL: [email or web address] Date: 01/13/2023 Prepared by: Viktor Hernández Exercises - Supine Quad Set - 1 x daily - 10 reps - 5 seconds hold - Supine Straight Leg Raises - 1 x daily - 10 reps - 2 seconds hold - Supine Heel Slide with Strap - 1 x daily - 7 x weekly - 1 sets - 10 reps - 5 hold - Seated Long Arc Quad - 1 x daily - 1-3 sets - 10 reps - 5 hold - Supine Bridge - 1 x daily - 1 sets - 10 reps - 10 hold - Side Leg Lifts - 1 x daily - 1-3 sets - 10 reps - 2 hold - Hooklying Bilateral Isometric Clamshell - 1 x daily - 2 sets - 10 reps - 3 hold PT Treatment Times Therex Total Time 33 Direct Treatment Time 33 Total Treatment Time 33 Goals: Physical Therapy Ortho Goals: Patient will safely, correctly and independently demonstrate the ability to perform a progressive HEP to achieve maximal rehabilitation potential and prevent this condition from recurring. 2 weeks Patient will improve knee pain level 0-3/10 from 5-8/10 with Wb activities. 6 weeks Patient will demonstrate strength of quadriceps muscle 5/5 with good eccentric control to improve tolerance of functional activities such as stair negotiation. 6 weeks Patient will improve tolerance to ambulation 20 mins and 20 stationary bike. 6 weeks Patient will improve FOTO score to at least 68 (predicted) from 46 to show MDC/MCII and expected functional outcome. 6 weeks Patient Education: Quality of movement with patient demonstrated understanding. Post-Treatment Pain Scale: 6 Assessment: Patient had an expected response to treatment. Skilled Intervention demonstrated by modifications of treatment per exercise log including increased load and safety interventions per exercise log. Progress towards goals as expected. Plan for Next Visit: Treatment Visit with focus on strengthening progression as tolerated Lolis Galindo PTA STATE LICENSE, [id number] documented in this encounter [facility] 01-16-2023 History of Present illness Narrative [facility] DAILY TREATMENT NOTE Today's Date 01/16/2023 Patient Name: Berenice Woodruff Date of : 1965 Current Visit #: 2 Authorized Visits: 60 Case Name: Tear of medial meniscus of left knee History: Pre-Treatment Pain Scale: 5 Symptoms: stabilized Functional Diagnosis: 1. Bucket handle tear of medial meniscus of left knee, unspecified whether old or current tear, initial encounter [S83.212A] Clinical Information: Subjective: Pt reports elevated pain today from being on feet more at work. Nights are worse with elevated pain and has difficulty sleeping. Objective Treatments: Physical Therapy Exercise Log - 01/16/23 1553 OTHER Notes Visit 1: 3:53 - 4:33 Vitals spend 10 mins on HEP and education Therapeutic Exercise (68787) Intervention SciFit - x5 min L4 Parameters Calf, HS stretch - 20 sec x3 Intervention BOSU Lunges - x15 alt Parameters Step ups - x10 fwd, lat Intervention Steamboats - x10 L3 Parameters Lat, retro ambulation - 15' x1 lap Intervention Shuttle squats - x20 50# Parameters Quad sets - 5 sec x10 Intervention Active Heel slides - x10 Parameters LAQ, HS curl - NV Parameters Access Code: [email or web address] URL: [email or web address] Date: 01/13/2023 Prepared by: Viktor Hernández Exercises - Supine Quad Set - 1 x daily - 10 reps - 5 seconds hold - Supine Straight Leg Raises - 1 x daily - 10 reps - 2 seconds hold - Supine Heel Slide with Strap - 1 x daily - 7 x weekly - 1 sets - 10 reps - 5 hold - Seated Long Arc Quad - 1 x daily - 1-3 sets - 10 reps - 5 hold - Supine Bridge - 1 x daily - 1 sets - 10 reps - 10 hold - Side Leg Lifts - 1 x daily - 1-3 sets - 10 reps - 2 hold - Hooklying Bilateral Isometric Clamshell - 1 x daily - 2 sets - 10 reps - 3 hold PT Treatment Times Therex Total Time 40 Direct Treatment Time 40 Total Treatment Time 40 Goals: Physical Therapy Ortho Goals: Patient will safely, correctly and independently demonstrate the ability to perform a progressive HEP to achieve maximal rehabilitation potential and prevent this condition from recurring. 2 weeks Patient will improve knee pain level 0-3/10 from 5-8/10 with Wb activities. 6 weeks Patient will demonstrate strength of quadriceps muscle 5/5 with good eccentric control to improve tolerance of functional activities such as stair negotiation. 6 weeks Patient will improve tolerance to ambulation 20 mins and 20 stationary bike. 6 weeks Patient will improve FOTO score to at least 68 (predicted) from 46 to show MDC/MCII and expected functional outcome. 6 weeks Patient Education: Quality of movement with patient demonstrated understanding. Post-Treatment Pain Scale: 4 Assessment: Patient had an expected response to treatment. Skilled Intervention demonstrated by modifications of treatment per exercise log including increased load and safety interventions per exercise log. Progress towards goals as expected. Plan for Next Visit: Treatment Visit with focus on strengthening and stability progression Lolis Galindo PTA STATE LICENSE, [id number] documented in this encounter [facility] 01-13-2023 History of Present illness Narrative [facility] Evaluation Today's Date 01/13/2023 Patient Name: Berenice Woodruff Date of : 1965 Case Name: Tear of medial meniscus of left knee Functional Diagnosis: 1. Tear of medial meniscus of left knee, unspecified tear type, unspecified whether old or current tear, subsequent encounter Clinical Information: Subjective Referring Diagnosis: Tear of medial meniscus of left knee History of Present Illness Subjective History: Patient reports pain in L knee for 3 months. Pain started on medial side of L knee and after riding stationary bike 1 day, knee pain and swelling in suprapatellar area was noticeable and she has hard time putting on pressure on l leg. She reports L knee pain is constant that feels better with NSAIDs. Reports clicking and locking and giving out feeling on l leg.She reports pain in knee limits her functional ability: 15 mins stationary bike worsens pain and swelling next day, stairs, walking, squatting, lifting. She stopped using knee brace as she would like to keep using her muscles. She reports quads are tight. 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 Cortisone shot in l knee few days ago gave some relief of sxs. Imaging: MRI L Knee: Complex tear medial meniscus with horizontal posterior horn component and displaced fragment of the body segment. Tricompartmental osteoarthritis. Joint effusion and bakers cyst. Previous Imaging: MRI Pain Scale Pain location: knee (L) Average Pain: 5/10 Pain at highest: 8/10 Aggravating factors: on it too much or doing modertae to strenoeus activities Easing factors: meloxicam, ice pack, cortisone shot, tylenol Personal Goals: Wants to get strength in leg Social Support: Rastafari, social, or cultural considerations to be made aware of before starting treatment: No Home Environment Current Home Environment: Current setup: stairs. Sleep Assessment Average Sleep: sometimes. Sleep disturbance: Sleep Disturbance Barriers to Care: Chronicity or severity of impairments Fall risk screening Fallen 2 or more times in the last 12 months: No Injured as a result of a fall in the last 12 months: No Rastafari, social, or cultural considerations to be made aware of before starting treatment: No Hip Left Hip Muscle Strength: Extension: 4+ (hamstring cramp with resisted motion) Abduction: 4+ Knee Left Knee Tenderness: medial joint line Range of Motion: Flexion Active: 120 Passive: 135 Extension Active: 0 Muscle Strength Flexion: 4+ Extension: 4+ Quad set: good Special Tests No testing done as pt already has MRI Sl standing Bl 10 sec (pain in l knee) but balance was fair Half Squatting slight pain, Gait: slight antalgic Hamstring hyper flexibility and SLR >90 Treatments: Physical Therapy Exercise Log - 01/13/23 1205 OTHER Vitals spend 10 mins on HEP and education Therapeutic Exercise (34930) Parameters Access Code: [email or web address] URL: [email or web address] Date: 01/13/2023 Prepared by: Viktor Hernández Exercises - Supine Quad Set - 1 x daily - 10 reps - 5 seconds hold - Supine Straight Leg Raises - 1 x daily - 10 reps - 2 seconds hold - Supine Heel Slide with Strap - 1 x daily - 7 x weekly - 1 sets - 10 reps - 5 hold - Seated Long Arc Quad - 1 x daily - 1-3 sets - 10 reps - 5 hold - Supine Bridge - 1 x daily - 1 sets - 10 reps - 10 hold - Side Leg Lifts - 1 x daily - 1-3 sets - 10 reps - 2 hold - Hooklying Bilateral Isometric Clamshell - 1 x daily - 2 sets - 10 reps - 3 hold Treatment Plan: Frequency of Visits: twice per week Duration: 6 weeks Interventions: Therapeutic Exercise (65384), Manual Therapy (48878), Gait Training (10062), Hot/Cold Pack (62550), and Vasopneumatic (63375) Rehab Potential: good Goals: Physical Therapy Ortho Goals: Patient will safely, correctly and independently demonstrate the ability to perform a progressive HEP to achieve maximal rehabilitation potential and prevent this condition from recurring. 2 weeks Patient will improve knee pain level 0-3/10 from 5-8/10 with Wb activities. 6 weeks Patient will demonstrate strength of quadriceps muscle 5/5 with good eccentric control to improve tolerance of functional activities such as stair negotiation. 6 weeks Patient will improve tolerance to ambulation 20 mins and 20 stationary bike. 6 weeks Patient will improve FOTO score to at least 68 (predicted) from 46 to show MDC/MCII and expected functional outcome. 6 weeks Patient Education provided: Patient was educated about the condition, precautions, and physical therapy plan of care. Patient was suggested to do ice application for 15-20 mins PRN to reduce pain, swelling, and inflammation. Educated about use of stationary bike and how to monitor sxs with activities and gradual progression of exercises. Clinical Impression: Pt is a 57 y.o. year old female who presented to the clinic with L knee meniscus tear. Upon assessment, pt has been found with the following impairments: Pain, decreased strength, endurance and coordination; impaired gait, balance, tolerance to do activities. 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 Pt to be discharged from OP PT services if/when goals are met, if they fail to make progress with conservative management in PT, if their level of progress plateaus, or if they do not maintain compliance with attendance or HEP. At this time, it is my clinical judgment that services are medically necessary. Viktor Hernández PT STATE LICENSE, [id number] documented in this encounter [facility] 10-14-2022 Note HNO ID: [id number] Author: Breezy Bal MD Service: ? Author Type: Physician Type: Progress Notes Filed: 10/14/2022 2:36 PM Note Text: ASSESSMENT/PLAN: 1. Dry eye syndrome of both eyes - ICD9: 375.15, ICD10: H04.123 (primary diagnosis) 2. Punctate keratitis, bilateral - ICD9: 370.21, ICD10: H16.143 History of recurrent corneal erosion left eye Discontinue the lico ointment at this time Continue: Refresh Pf 1 drop in both eyes three times daily 3. 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 Vitreous floaters of both eyes - ICD9: 379.24, ICD10: H43.393 Patient was given both written and verbal information on flashes and floaters. Patient was instructed to call the office ([phone]) immediately upon noticing flashes of light, increase in floaters, or changes in vision. 5. 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 I have seen and examined Berenice Woodruff. I have discussed the examination findings, diagnosis, and treatment options with Berenice Woodruff and/or her family. I have also reviewed and agree with the assessment and plan as stated above and agree with all its relevant components. I gave the patient the opportunity to ask questions about the findings, diagnosis, and treatment options. [facility] 10-14-2022 History of Present illness Narrative ASSESSMENT/PLAN: 1. Dry eye syndrome of both eyes - ICD9: 375.15, ICD10: H04.123 (primary diagnosis) 2. Punctate keratitis, bilateral - ICD9: 370.21, ICD10: H16.143 History of recurrent corneal erosion left eye Discontinue the lico ointment at this time Continue: Refresh Pf 1 drop in both eyes three times daily 3. 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 Vitreous floaters of both eyes - ICD9: 379.24, ICD10: H43.393 Patient was given both written and verbal information on flashes and floaters. Patient was instructed to call the office ([phone]) immediately upon noticing flashes of light, increase in floaters, or changes in vision. 5. 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 I have seen and examined Berenice Woodruff. I have discussed the examination findings, diagnosis, and treatment options with Berenice Woodruff and/or her family. I have also reviewed and agree with the assessment and plan as stated above and agree with all its relevant components. I gave the patient the opportunity to ask questions about the findings, diagnosis, and treatment options. documented in this encounter [facility] 09-18-2022 History of Present illness Narrative Subjective Patient ID: Berenice Woodruff is a 56 y.o. female who presents for Shoulder Pain (Lt). Shoulder Pain 2020, peter, clear but rec 5 years for grandfather with colono cancer and dad with polyps. Had similar troubles last year with a low back in the left shoulder blade. Chiropractor does help she still in pain. Last year the prednisone and the cyclobenzaprine helped. Mammogram through [employer] 2021 We will order up labs for mild fatigue screening lipids Prednisone taper Cyclobenzaprine at night as needed Review of Systems Constitutional: Positive for fatigue. HENT: Positive for rhinorrhea and sinus pressure. Respiratory: Negative for cough and shortness of breath. Gastrointestinal: Negative for blood in stool, constipation and diarrhea. Musculoskeletal: Positive for back pain. Psychiatric/Behavioral: Positive for sleep disturbance. Objective BP 126/88 Pulse 77 Ht 1.702 m (5' 7 ) Wt 95.3 kg (210 lb 1.6 oz) SpO2 95% BMI 32.91 kg/m Physical Exam Constitutional: Appearance: Normal appearance. HENT: Head: Normocephalic. Cardiovascular: Rate and Rhythm: Normal rate and regular rhythm. Heart sounds: Normal heart sounds. Pulmonary: Effort: Pulmonary effort is normal. Breath sounds: Normal breath sounds. Abdominal: Palpations: Abdomen is soft. Musculoskeletal: Thoracic back: Tenderness present. No bony tenderness. Skin: General: Skin is warm and dry. Neurological: General: No focal deficit present. Mental Status: She is alert and oriented to person, place, and time. Psychiatric: Mood and Affect: Mood normal. Behavior: Behavior normal. Judgment: Judgment normal. Assessment/Plan Problem List Items Addressed This Visit Other Mid back pain on left side - Primary Relevant Medications predniSONE (Deltasone) 10 mg tablet cyclobenzaprine (Flexeril) 10 mg tablet Other Visit Diagnoses Fatigue, unspecified type Relevant Orders CBC Comprehensive Metabolic Panel Thyroid Stimulating Hormone Lipid screening Relevant Orders Lipid Panel documented in this encounter [facility] Work Phone: 04-11-2022 Instructions Mary Pike, OD - 04/11/2022 11:21 AM EDT ASSESSMENT/PLAN: 1. Dry eye syndrome of both eyes - ICD9: 375.15, ICD10: H04.123 (primary diagnosis) 2. Punctate keratitis, bilateral - ICD9: 370.21, ICD10: H16.143 3. 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 Recommended the use of artificial tears four times per day to maintain good vision and comfort.and trying to use them first thing in the morning. Discussed contacting the office if there is a change in comfort or vision. Recommended using hot compresses several times per day. Current Ophthalmic Meds carboxymethyl/gly/poly80/PF (REFRESH OPTIVE LEIDY-3, PF, OPHTHALMIC) sodium chloride (ILCO 128) 5 % ophthalmic ointment Use 1 application in both eyes daily at bedtime. Recommended follow up in 6 months. documented in this encounter [facility] 04-11-2022 History of Present illness Narrative ASSESSMENT/PLAN: 1. Dry eye syndrome of both eyes - ICD9: 375.15, ICD10: H04.123 (primary diagnosis) 2. Punctate keratitis, bilateral - ICD9: 370.21, ICD10: H16.143 3. 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 Recommended the use of artificial tears four times per day to maintain good vision and comfort.and trying to use them first thing in the morning. Discussed contacting the office if there is a change in comfort or vision. Recommended using hot compresses several times per day. Current Ophthalmic Meds carboxymethyl/gly/poly80/PF (REFRESH OPTIVE LEIDY-3, PF, OPHTHALMIC) sodium chloride (LICO 128) 5 % ophthalmic ointment Use 1 application in both eyes daily at bedtime. Recommended follow up in 6 months. Mary Pike, OD I have confirmed and edited as necessary the relevant ophthalmic history, ROS, and the neuro exam findings as obtained by others. I have seen and examined this patient. documented in this encounter [facility] 08-26-2021 History of Present illness Narrative Berenice comes to the office for complaints of left-sided thoracic pain. Pain started approximately 2 weeks ago and she is unable to relate an injury right trauma to explain the pain. She recalls getting up one morning stretching and then turning a corner and had a pulling sensation in her mid left thoracic region. States pain radiates to her left hip and top of left buttock. Pain is aggravated with bending over, getting up or getting down. No rotational movement discomfort. No Cough, Fever or chilling. She went to her chiropractor and said the pain initially went away after she had an alignment but then approximately 2 days after that alignment the pain started back up. Found some relief with icing the left-sided thoracic region. OTC: Aleve/IBU. + Salonspas. No history of renal calculi. She denies urinary symptoms. No saddle anesthesia. She also has been sitting more for her job and notes she has been sitting more on her left buttock and ankle at her desk which may be contributing to the pain she feels in her hip and buttock region. 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 Vitreous floaters of both eyes Hx of LASIK Other states following surgery of eye and adnexa [facility] Diagnosis Primary osteoarthritis of left knee- Primary Left knee pain, unspecified chronicity [facility] Diagnosis Tear of medial meniscus of left knee, unspecified tear type, unspecified whether old or current tear, subsequent encounter- Primary Primary osteoarthritis of left knee [facility] Diagnosis Tear of medial meniscus of left knee Primary osteoarthritis of left knee Tear of medial meniscus of left knee, unspecified tear type, unspecified whether old or current tear, subsequent encounter Tear of medial meniscus of left knee, unspecified tear type, unspecified whether old or current tear, subsequent encounter Primary osteoarthritis of left knee [facility] Tear of medial meniscus of left knee Primary osteoarthritis of left knee Bucket handle tear of medial meniscus of left knee, unspecified whether old or current tear, initial encounter [S83.212A]- Primary Tear of medial meniscus of left knee, unspecified tear type, unspecified whether old or current tear, subsequent encounter Primary osteoarthritis of left knee [facility] Diagnosis Tear of medial meniscus of left knee Primary osteoarthritis of left knee Bucket-handle tear of medial meniscus of left knee as current injury, initial encounter [S83.212A]- Primary Tear of medial meniscus of left knee, unspecified tear type, unspecified whether old or current tear, subsequent encounter Primary osteoarthritis of left knee [facility] Diagnosis Tear of medial meniscus of left knee Primary osteoarthritis of left knee Old bucket handle tear of medial meniscus of left knee- Primary Tear of medial meniscus of left knee, unspecified tear type, unspecified whether old or current tear, subsequent encounter Primary osteoarthritis of left knee [facility] Diagnosis Tear of medial meniscus of left knee Primary osteoarthritis of left knee Old tear of medial meniscus of left knee, unspecified tear type- Primary Tear of medial meniscus of left knee, unspecified tear type, unspecified whether old or current tear, subsequent encounter Primary osteoarthritis of left knee [facility] Diagnosis Tear of medial meniscus of left knee Primary osteoarthritis of left knee Old tear of medial meniscus of left knee, unspecified tear type- Primary Primary osteoarthritis of left knee Tear of medial meniscus of left knee, unspecified tear type, unspecified whether old or current tear, subsequent encounter Primary osteoarthritis of left knee [facility] Diagnosis S/P left knee arthroscopy- Primary [facility]* productive cough in AM with a lot of coughing x 6 weeks. * allergies are not a big problem right now. * colon 2020 - ok, rec 5 years. * [facility] at [employer] 2020. also will get US. * covid shot done * rec flu shot. [facility] Work Phone: Summary Purpose Family History No Family History Records Found Mother Name Dates Details Family history of obesity(V1 8.19, Z83.49) Status:Active Family history of fibromyalg ia(V17.89, Z82.69) Status:Active Father Name Dates Details Family history of cardiac pa cemaker(V17.49, Z82.49) Status:Active Unknown Family Member Name Dates Details Family history of cardiac pa cemaker: Father(V17.49, Z82.49) Status:Active Family history of obesity: M other(V18.19, Z83.49) Status:Active Family history of fibromyalg ia: Mother(V17.89, Z82.69) Status:Active Unknown Family Member Name Dates Details Family history of cardiac pa cemaker: Father(V17.49, Z82.49) Status:Active Family history of obesity: M other(V18.19, Z83.49) Status:Active Family history of fibromyalg ia: Mother(V17.89, Z82.69) Status:Active Unknown Family Member Name Dates Details Family history of cardiac pa cemaker: Father(V17.49, Z82.49) Status:Active Family history of obesity: M other(V18.19, Z83.49) Status:Active Family history of fibromyalg ia: Mother(V17.89, Z82.69) Status:Active Unknown Family Member Name Dates Details Family history of cardiac pa cemaker: Father(V17.49, Z82.49) Status:Active Family history of obesity: M other(V18.19, Z83.49) Status:Active Family history of fibromyalg ia: Mother(V17.89, Z82.69) Status:Active Unknown Family Member Name Dates Details Family history of cardiac pa cemaker: Father(V17.49, Z82.49) Status:Active Family history of obesity: M other(V18.19, Z83.49) Status:Active Family history of fibromyalg ia: Mother(V17.89, Z82.69) Status:Active Unknown Family Member Name Dates Details Family history of cardiac pa cemaker: Father(V17.49, Z82.49) Status:Active Family history of obesity: M other(V18.19, Z83.49) Status:Active Family history of fibromyalg ia: Mother(V17.89, Z82.69) Status:Active Unknown Family Member Name Dates Details Family history of cardiac pa cemaker: Father(V17.49, Z82.49) Status:Active Family history of obesity: M other(V18.19, Z83.49) Status:Active Family history of fibromyalg ia: Mother(V17.89, Z82.69) Status:Active Advance Directives No Advanced Directives Records FoundNo Advanced Directives Records FoundNo Advanced Directives Records FoundNo Advanced Directives Records FoundNo Advanced Directives Records FoundNo Advanced Directives Records FoundNo Advanced Directives Records FoundNo Advanced Directives Records FoundNo Advanced Directives Records FoundNo Advanced Directives Records FoundNo Advanced Directives Records Found Chief Complaint COUGH,ST X 6 WKSLUMBAR PAIN X 2 WK Medications Administered Section Active Administered Medications - up to 3 most recent administrations Medication Order MAR Action Action Date Dose Rate Site proparacaine 0.5 % 1 Drop (ALCAINE) 1 Drop, BOTH EYES, DIRECTED, Starting on Thu04/11/22 at 1100, Until Thu04/11/22 at 2259, Administer for pneumo tonometry, tonopen tonometry, or pachymetry. In the event of a proparacaine shortage, administer tetracaine 0.5% ophthalmic drops 1 drop in the left eye as directed for pneumo tonometry, tonopen tonometry, or pachymetry Given 04/11/2022 11:00 AM EDT 1 Drop Active Administered Medications - up to 3 most recent administrations Medication Order MAR Action Action Date Dose Rate Site PHENYLephrine 2.5 % 1 Drop (AK-DILATE, TISH-SYNEPHRINE) 1 Drop, BOTH EYES, DIRECTED, Starting on Thu10/14/22 at 1400, Until Thu10/15/22 at 015, Administer for dilation PROTECT FROM LIGHT Given 10/14/2022 2:00 PM EDT 1 Drop proparacaine 0.5 % 1 Drop (ALCAINE) 1 Drop, BOTH EYES, DIRECTED, Starting on Thu10/14/22 at 1400, Until Thu10/15/22 at 015, Administer for pneumo tonometry, tonopen tonometry, or pachymetry. In the event of a proparacaine shortage, administer tetracaine 0.5% ophthalmic drops 1 drop in the left eye as directed for pneumo tonometry, tonopen tonometry, or pachymetry Given 10/14/2022 2:00 PM EDT 1 Drop tropicamide 1 % 1 Drop (MYDRIACYL) 1 Drop, BOTH EYES, DIRECTED, Starting on Thu10/14/22 at 1400, Until Thu10/15/22 at 0159, Administer for dilation Given 10/14/2022 2:00 PM EDT 1 Drop Reason for Referral Specialty Diagnoses / Procedures Referred By Nelia healy Referred To Contact Diagnoses Primary osteoarthritis of left knee Left knee pain, unspecified chronicity Procedures MR Knee Left Without Contrast Nancy Zarate, [employer] [address] [place] [address] Referral ID Status Reason Start Date Expiration Date V isits Requested Visits Authorized [id number] New Request 12/11/2022 12/11/2023 1 1 Additional Source Comments INFORMATION SOURCE (unrecogn ized section and content) DATE CREATED AUTHOR AUTHOR'S ORGANIZ ATION 02/06/2019 [facility] DATE CREATED AUTHOR AUTHOR'S ORGANIZ ATION 09/10/2021 [facility] DATE CREATED AUTHOR AUTHOR'S ORGANIZ ATION 09/10/2021 [facility] DATE CREATED AUTHOR AUTHOR'S ORGANIZ ATION 10/04/2022 [facility] DATE CREATED AUTHOR AUTHOR'S ORGANIZ ATION 11/22/2022 [facility] DATE CREATED AUTHOR AUTHOR'S ORGANIZ ATION 01/01/2023 [facility] DATE CREATED AUTHOR AUTHOR'S ORGANIZ ATION 01/04/2023 [facility] DATE CREATED AUTHOR AUTHOR'S ORGANIZ ATION 03/22/2023 [facility] DATE CREATED AUTHOR AUTHOR'S ORGANIZ ATION 03/24/2023 [facility] DATE CREATED AUTHOR AUTHOR'S ORGANIZ ATION 04/23/2023 [facility] Source Comments (unrecognize d section and content) In the event this informatio n is protected by the Federal Confidentiality of Alcohol and Drug Abuse Patient Records regulations: The Federal rules restrict any use of the information to criminally investigate or prosecute any alcohol or drug abuse patient.[facility] the event this information is protected by the Federal Confidentiality of Alcohol and Drug Abuse Patient Records regulations: The Federal rules restrict any use of the information to criminally investigate or prosecute any alcohol or drug abuse patient.[facility] Reason for Visit (unrecogniz ed section and content) Reason Comments Shoulder Pain Lt Reason Comments Dry Eye Syndrome Follow Up Both eyes, mu ch better Reason Comments Physical Therapy Specialty Diagnoses / Procedures Referred By Nelia t Referred To Contact Rehabilitation Diagnoses Tear of medial meniscus of left knee, unspecified tear type, unspecified whether old or current tear, subsequent encounter Nancy Zarate, [employer] [address] [place] [address] [facility] [address] [place] [address] Referral ID Status Reason Start Date Expiration Date Visits Requested Visits Authorized [id number] Authorized Specialty Services Required/Pat smita's Best Interest 01/01/2023 01/01/2024 13 60 Reason Comments Pre-op Exam Left knee Reason Comments Follow-up Suture / Staple Removal Care Teams (unrecognized sec tion and content) Pcat Instructor Relationship Specialty Start Date End Date Luc Oliva MD [address] [place] [id number] PCP - General 09/09/21 Luc Oliva MD [address] [facility] [place] [address] [facility] 06/15/21 Pcat Instructor Relationship Specialty Start Date End Date Pepe Desai MD [address] [place] [id number] PCP - General Family Medicine 07/09/20 Pcat Instructor Relationship Specialty Start Date End Date Luc Oliva MD [address] [place] [address] PCP - General Family Medicine 11/27/22 Pcat Instructor Relationship Specialty Start Date End Date Luc Oliva MD [address] [facility] [place] [place] [address] PCP - General Family Medicine 11/27/22 Pcat Instructor Relationship Specialty Start Date End Date Luc Oliva MD [address] [facility] [place] [address] PCP - General Family Medicine 11/27/22 Pcat Instructor Relationship Specialty Start Date End Date Luc Oliva MD [address] [place] [address] PCP - [facility] 11/27/22 Pcat Instructor Relationship Specialty Start Date End Date Luc Oliva MD [address] [place] [address] PCP - [facility] 11/27/22 Pcat Instructor Relationship Specialty Start Date End Date Luc Oliva MD [address] [place] [id number] PCP - [facility] 11/27/22 Pcat Instructor Relationship Specialty Start Date End Date Luc Oliva MD [address] [place] [id number] PCP - [facility] 11/27/22 Pcat Instructor Relationship Specialty Start Date End Date Luc Oliva MD [address] [place] [address] [facility] - [facility] 11/27/22 FOR RECORDS PERTAINING TO PATIENTS WHO ARE OR HAVE BEEN ENROLLED IN A CHEMICAL DEPENDENCY/SUBSTANCEABUSE PROGRAM, SOME INFORMATION MAY BE OMITTED. This clinical summary was aggregated from multiple sources. Caution should be exercised in using it in the provision of clinical care. This summary normalizes information from multiple sources, and as a consequence, information in this document may materially change the coding, format and clinical context of patient data. In addition, data may be omitted in some cases. CLINICAL DECISIONS SHOULD BE BASED ON THE PRIMARY CLINICAL RECORDS. [facility] [employer] by [employer] [facility]. provides no warranty or guarantee of the accuracy or completeness of information in this document.
== END | disposition home or self-care (01) ==
LOC: OPBI 10:43
PROVIDERS: PCP Family Medicine; Referring Provider Nurse Practitioner Women's Health; Visit Provider Nurse Practitioner Women's Health
DX: Z12.31 Encounter for screening mammogram for malignant neoplasm of breast (principal)
CPT/HCPCS: 77063; 77067

== ENCOUNTER → 2024-08-11 | Outpatient (CLI) | payer OTHER, SELFPAY ==
--- NOTE | 2024-08-11 12:55 | BI_ITS ---
PROCEDURE: SCRN MAMM (CAD)W/MALISSA BILAT REASON FOR EXAM: F, Age 58 y/o, no family history. TECHNIQUE: Bilateral screening digital breast tomosynthesis with 2D and 3D images. Computer aided detection. COMPARISON: Prior exam(s) dating back to July 09, 2023.. FINDINGS: The breasts are heterogeneously dense which may obscure small masses. Stable examination. No suspicious masses, areas of developing architectural distortion, or suspicious calcifications. BI/SCRN MAMM (CAD)W/MALISSA BILAT IMPRESSION: BI-RADS 1: NEGATIVE. RECOMMEND ANNUAL MAMMOGRAPHIC SCREENING. Follow-up code: Routine Follow-up The patient will be notified of the results by letter. Reading Location: [id number]
== END | disposition home or self-care (01) ==
LOC: OPBI 12:53
PROVIDERS: PCP Family Medicine; Referring Provider Nurse Practitioner Women's Health; Visit Provider Nurse Practitioner Women's Health
DX: Z12.31 Encounter for screening mammogram for malignant neoplasm of breast (principal)
CPT/HCPCS: 77063; 77067

== ENCOUNTER → 2024-10-18 | Outpatient (CLI) | payer OTHER, SELFPAY ==
--- NOTE | 2024-10-18 12:55 | RAD_ITS ---
EXAM: XR Cervical Spine, 4 or 5 Views CLINICAL INDICATION: SEGMENTAL AND SOMATIC DYSFUNCTION OF CERVICAL REGION TECHNIQUE: Frontal, lateral and bilateral oblique views of the cervical spine. COMPARISON: No relevant prior studies available. FINDINGS: VERTEBRAE: Moderate reversal of cervical spine lordosis. Degenerative facet arthropathy throughout the cervical spine. No acute fracture. DISC SPACES: Degenerative disc disease throughout the cervical spine. SOFT TISSUES: Unremarkable. RAD/Cerv Spine 4 or 5 Views IMPRESSION: 1. No acute fracture. 2. Degenerative changes of the cervical spine as described. Reading Location: [facility]
== END | disposition home or self-care (01) ==
PROVIDERS: PCP Family Medicine; Referring Provider Chiropractor Orthopedic; Visit Provider Chiropractor Orthopedic
DX: M99.01 Segmental and somatic dysfunction of cervical region (principal); M54.2 Cervicalgia
CPT/HCPCS: 72050